=== PATIENT | male | born 1995 | race Caucasian/White ===

== ENCOUNTER 2016-05-25 20:03 | Emergency (ER) | payer BC, MEDICAID ==
--- NOTE | 2016-05-25 21:26 | EDDOCDS ---
Physician Documentation [facility] Name: Brandyn Romano Age: 20 yrs Sex: Male : 1995 Arrival Date: 05/25/2016 Time: 20:03 Bed TR7 Private MD: NO PRIMARY PHYSICIAN, . Disposition: 05/25/16 21:09 Discharged to Home/Self Care. Impression: Acute serous otitis media, right ear. - Condition is Stable. - Discharge Instructions: Serous Otitis Media. - Medication Reconciliation, Local Pharmacy Hours form. - Follow up: Private Physician; When: 2 - 3 days; Reason: Further diagnostic work-up, Recheck today's complaints, Continuance of care. - Problem is new. - Symptoms are unchanged. Historical: - Allergies: no known allergies; - Home Meds: 1. minocycline 55 mg Oral Tb24 1 tab once daily - PMHx: none; - PSHx: Tonsillectomy; Tubes in ears; - Social history: Smoking status: Patient states was never smoker of tobacco. No barriers to communication noted, The patient speaks fluent Congolese. - Family history: Not pertinent, No immediate family members are acutely ill. - : The pt / caregiver states he / she is not on anticoagulants. Home medication list is obtained from the patient. - Exposure Risk Screening:: None identified. Vital Signs: 05/25 20:05 BP 139 / 83; Pulse 76; Resp 18; Temp 96.6(O); Pulse Ox 100% on R/A; Weight 99.34 kg / elp 219.01 lbs (M); Height 5 ft. 8 in. (172.72 cm) (R); Pain 7/10; 20:05 Body Mass Index 33.30 (99.34 kg, 172.72 cm) elp Signatures: Doreen Woodruff RN RN kmg1 Hui DowRN RN rs3 Marlon Oropeza PA PA btw MTDD
--- NOTE | 2016-05-25 21:26 | EDDOCDS ---
Nurse's Notes [facility] Name: Brandyn Romano Age: 20 yrs Sex: Male : 1995 Arrival Date: 05/25/2016 Time: 20:03 Bed TR7 Private MD: NO PRIMARY PHYSICIAN, . Diagnosis: Acute serous otitis media, right ear Presentation: 05/25 20:15 Presenting complaint: Patient states: Right ear pain/nausea started an hour ago. Adult rs3 Sepsis Screening: The patient does not have new or worsening altered mentation. Patient's respiratory rate is less than 22. Systolic blood pressure is greater than 100. Patient has a qSOFA score of 0- Negative Sepsis Screen. Suicide/Homicide risk assessment- the patient denies having any suicidal and/or homicidal ideations and does not present with any other emotional, behavioral or mental health complaints. Status: Patient is not a x ray service technician or dependent. Transition of care: patient was not received from another setting of care. 20:15 Acuity: DANIS Level 5 rs3 20:15 Method Of Arrival: Walkin/Carried/Asstd rs3 Triage Assessment: 20:19 General: Appears in no apparent distress. Pain: Location: right ear. Pt Declines HIV rs3 testing. EENT: Reports pain Pain is 7 out of 10 on a pain scale. Historical: - Allergies: no known allergies; - Home Meds: 1. minocycline 55 mg Oral Tb24 1 tab once daily - PMHx: none; - PSHx: Tonsillectomy; Tubes in ears; - Social history: Smoking status: Patient states was never smoker of tobacco. No barriers to communication noted, The patient speaks fluent Tongan. - Family history: Not pertinent, No immediate family members are acutely ill. - : The pt / caregiver states he / she is not on anticoagulants. Home medication list is obtained from the patient. - Exposure Risk Screening:: None identified. Screenin:23 Screening information is obtained from the patient. Fall risk: No risks identified. kmg1 Assistance ADL's: requires no assistance with activities of daily living. Abuse/DV Screen: The patient / caregiver reports he/she is: not in a situation that causes fear, pain or injury. Nutritional screening: No deficits noted. Advance Directives: There is no active DNR order. home support is adequate. Assessment: 21:23 General: Appears in no apparent distress, comfortable, Behavior is appropriate for age, kmg1 cooperative, pleasant. Pain: Location: right ear Pain currently is 7 out of 10 on a pain scale. EENT: Tympanic membrane reddened on right ear Reports pain in right ear. Vital Signs: 20:05 BP 139 / 83; Pulse 76; Resp 18; Temp 96.6(O); Pulse Ox 100% on R/A; Weight 99.34 kg elp (M); Height 5 ft. 8 in. (172.72 cm) (R); Pain 7/10; 20:05 Body Mass Index 33.30 (99.34 kg, 172.72 cm) elp Vitals: 20:05 Log In Time: May 25, 2016 at 20:03. elp ED Course: 20:04 Patient visited by Minnie Segundo PCA. elp 20:04 Patient moved to Waiting elp 20:05 NO PRIMARY PHYSICIAN, . is Private Physician. elp 20:05 Patient visited by Minnie Segundo PCA. elp 20:05 Patient moved to Pre RCE elp 20:17 Triage Initiated rs3 20:45 Patient moved to Triage 1 ct3 20:55 [facility]. btw 20:55 Perry Sanchez DO is Attending Physician. btw 20:55 Patient visited by Marlon Oropeza PA. btw 21:23 The patient / caregiver is instructed regarding the plan of care and ED course. kmg1 21:23 No IV's were initiated during this patient's visit. No procedures done that require kmg1 assistance. 21:24 Patient moved to TR7 ct3 Order Results: There are currently no results for this order. Outcome: 21:09 Discharge ordered by Provider. btw 21:23 Discharge Assessment: Patient awake, alert and oriented x 3. No cognitive and/or kmg1 functional deficits noted. Patient verbalized understanding of disposition instructions. Patient awake and alert. patient administered narcotics - no. The following High Risk Discharge criteria are identified: None. Discharged to home ambulatory, with parent. Condition: stable. Discharge instructions given to patient, Instructed on discharge instructions, follow up and referral plans. medication usage, Demonstrated understanding of instructions, Pt was receptive of discharge instructions/ teaching. No special radiology studies were completed. Property sent home with patient. 21:25 Patient left the ED. kmg1 Signatures: Doreen Woodruff RN RN kmg1 Hui Dow RN RN rs3 Marlon Oropeza PA PA btw Tameka Davis, BINDERY CHIEF BINDERY CHIEF ct3 Minnie Segundo, BINDERY CHIEF BINDERY CHIEF elp MTDD
--- NOTE | 2016-05-27 22:27 | EDDOCDS ---
Physician Documentation [facility] Name: Brandyn Romano Age: 20 yrs Sex: Male : 1995 Arrival Date: 05/25/2016 Time: 20:03 Bed TR7 Private MD: NO PRIMARY PHYSICIAN, . Disposition: 05/25/16 21:09 Discharged to Home/Self Care. Impression: Acute serous otitis media, right ear. - Condition is Stable. - Discharge Instructions: Serous Otitis Media. - Medication Reconciliation, Local Pharmacy Hours form. - Follow up: Private Physician; When: 2 - 3 days; Reason: Further diagnostic work-up, Recheck today's complaints, Continuance of care. - Problem is new. - Symptoms are unchanged. Historical: - Allergies: no known allergies; - Home Meds: 1. minocycline 55 mg Oral Tb24 1 tab once daily - PMHx: none; - PSHx: Tonsillectomy; Tubes in ears; - Social history: Smoking status: Patient states was never smoker of tobacco. No barriers to communication noted, The patient speaks fluent Filipino. - Family history: Not pertinent, No immediate family members are acutely ill. - : The pt / caregiver states he / she is not on anticoagulants. Home medication list is obtained from the patient. - Exposure Risk Screening:: None identified. Vital Signs: 05/25 20:05 BP 139 / 83; Pulse 76; Resp 18; Temp 96.6(O); Pulse Ox 100% on R/A; Weight 99.34 kg / elp 219.01 lbs (M); Height 5 ft. 8 in. (172.72 cm) (R); Pain 7/10; 20:05 Body Mass Index 33.30 (99.34 kg, 172.72 cm) elp MDM: 21:39 Financial registration complete. [facility] 21:41 [facility] Payment Agreement was scanned into [employer] and attached to record. [email or web address] 05/26 21:38 T-Sheet-- Draft Copy was scanned into [employer] and attached to record. dexter Signatures: Doreen Woodruff RN RN kmg1 Hui Dow RN RN rs3 Marlon Oropeza PA PA btw Georgia Lo, Reg Reg ks16 Татьяна Kurtz The chart was reviewed and I authenticate all verbal orders and agree with the evaluation and treatment provided.Attachments: 05/25 21:41 [facility] Payment Agreement [email or web address] 05/26 21:38 T-Sheet-- Draft Copy klr Chart Complete MTDD
--- NOTE | 2016-05-27 22:27 | EDDOCDS ---
Physician Documentation [facility] Name: Brandyn Romano Age: 20 yrs Sex: Male : 1995 Arrival Date: 05/25/2016 Time: 20:03 Bed TR7 Private MD: NO PRIMARY PHYSICIAN, . Disposition: 05/25/16 21:09 Discharged to Home/Self Care. Impression: Acute serous otitis media, right ear. - Condition is Stable. - Discharge Instructions: Serous Otitis Media. - Medication Reconciliation, Local Pharmacy Hours form. - Follow up: Private Physician; When: 2 - 3 days; Reason: Further diagnostic work-up, Recheck today's complaints, Continuance of care. - Problem is new. - Symptoms are unchanged. Historical: - Allergies: no known allergies; - Home Meds: 1. minocycline 55 mg Oral Tb24 1 tab once daily - PMHx: none; - PSHx: Tonsillectomy; Tubes in ears; - Social history: Smoking status: Patient states was never smoker of tobacco. No barriers to communication noted, The patient speaks fluent Vietnamese. - Family history: Not pertinent, No immediate family members are acutely ill. - : The pt / caregiver states he / she is not on anticoagulants. Home medication list is obtained from the patient. - Exposure Risk Screening:: None identified. Vital Signs: 05/25 20:05 BP 139 / 83; Pulse 76; Resp 18; Temp 96.6(O); Pulse Ox 100% on R/A; Weight 99.34 kg / elp 219.01 lbs (M); Height 5 ft. 8 in. (172.72 cm) (R); Pain 7/10; 20:05 Body Mass Index 33.30 (99.34 kg, 172.72 cm) elp MDM: 21:39 Financial registration complete. [facility] 21:41 [facility] Payment Agreement was scanned into [employer] and attached to record. [email or web address] 05/26 21:38 T-Sheet-- Draft Copy was scanned into [employer] and attached to record. dexter Signatures: Doreen Woodruff RN RN kmg1 Hui Dow RN RN rs3 Marlon Oropeza PA PA btw Georgia Lo, Reg Reg ks16 Татьяна Kurtz The chart was reviewed and I authenticate all verbal orders and agree with the evaluation and treatment provided.Attachments: 05/25 21:41 [facility] Payment Agreement [email or web address] 05/26 21:38 T-Sheet-- Draft Copy klr Chart Complete MTDD
--- NOTE | 2016-05-27 22:27 | EDDOCDS ---
Nurse's Notes [facility] Name: Brandyn Romano Age: 20 yrs Sex: Male : 1995 Arrival Date: 05/25/2016 Time: 20:03 Bed TR7 Private MD: NO PRIMARY PHYSICIAN, . Diagnosis: Acute serous otitis media, right ear Presentation: 05/25 20:15 Presenting complaint: Patient states: Right ear pain/nausea started an hour ago. Adult rs3 Sepsis Screening: The patient does not have new or worsening altered mentation. Patient's respiratory rate is less than 22. Systolic blood pressure is greater than 100. Patient has a qSOFA score of 0- Negative Sepsis Screen. Suicide/Homicide risk assessment- the patient denies having any suicidal and/or homicidal ideations and does not present with any other emotional, behavioral or mental health complaints. Status: Patient is not a auto self service station attendant or dependent. Transition of care: patient was not received from another setting of care. 20:15 Acuity: DANIS Level 5 rs3 20:15 Method Of Arrival: Walkin/Carried/Asstd rs3 Triage Assessment: 20:19 General: Appears in no apparent distress. Pain: Location: right ear. Pt Declines HIV rs3 testing. EENT: Reports pain Pain is 7 out of 10 on a pain scale. Historical: - Allergies: no known allergies; - Home Meds: 1. minocycline 55 mg Oral Tb24 1 tab once daily - PMHx: none; - PSHx: Tonsillectomy; Tubes in ears; - Social history: Smoking status: Patient states was never smoker of tobacco. No barriers to communication noted, The patient speaks fluent [place] Islander. - Family history: Not pertinent, No immediate family members are acutely ill. - : The pt / caregiver states he / she is not on anticoagulants. Home medication list is obtained from the patient. - Exposure Risk Screening:: None identified. Screenin:23 Screening information is obtained from the patient. Fall risk: No risks identified. kmg1 Assistance ADL's: requires no assistance with activities of daily living. Abuse/DV Screen: The patient / caregiver reports he/she is: not in a situation that causes fear, pain or injury. Nutritional screening: No deficits noted. Advance Directives: There is no active DNR order. home support is adequate. Assessment: 21:23 General: Appears in no apparent distress, comfortable, Behavior is appropriate for age, kmg1 cooperative, pleasant. Pain: Location: right ear Pain currently is 7 out of 10 on a pain scale. EENT: Tympanic membrane reddened on right ear Reports pain in right ear. Vital Signs: 20:05 BP 139 / 83; Pulse 76; Resp 18; Temp 96.6(O); Pulse Ox 100% on R/A; Weight 99.34 kg elp (M); Height 5 ft. 8 in. (172.72 cm) (R); Pain 7/10; 20:05 Body Mass Index 33.30 (99.34 kg, 172.72 cm) elp Vitals: 20:05 Log In Time: May 25, 2016 at 20:03. elp ED Course: 20:04 Patient visited by Minnie Segundo PCA. elp 20:04 Patient moved to Waiting elp 20:05 NO PRIMARY PHYSICIAN, . is Private Physician. elp 20:05 Patient visited by Minnie Segundo PCA. elp 20:05 Patient moved to Pre RCE elp 20:17 Triage Initiated rs3 20:45 Patient moved to Triage 1 ct3 20:55 [facility] btw 20:55 Perry Sanchez DO is Attending Physician. btw 20:55 Patient visited by Marlon Oropeza PA. btw 21:23 The patient / caregiver is instructed regarding the plan of care and ED course. kmg1 21:23 No IV's were initiated during this patient's visit. No procedures done that require kmg1 assistance. 21:24 Patient moved to TR7 ct3 21:41 [facility] Payment Agreement was scanned into [employer] and attached to record. [email or web address] 05/26 21:38 T-Sheet-- Draft Copy was scanned into [employer] and attached to record. klr Order Results: There are currently no results for this order. Outcome: 05/25 21:09 Discharge ordered by Provider. btw 21:23 Discharge Assessment: Patient awake, alert and oriented x 3. No cognitive and/or kmg1 functional deficits noted. Patient verbalized understanding of disposition instructions. Patient awake and alert. patient administered narcotics - no. The following High Risk Discharge criteria are identified: None. Discharged to home ambulatory, with parent. Condition: stable. Discharge instructions given to patient, Instructed on discharge instructions, follow up and referral plans. medication usage, Demonstrated understanding of instructions, Pt was receptive of discharge instructions/ teaching. No special radiology studies were completed. Property sent home with patient. 21:25 Patient left the ED. kmg1 Signatures: Doreen Woodruff, RN RN kmg1 Hui Dow RN RN rs3 Marlon Oropeza PA PA btw Tameka Davis, BAKED GOODS STOCK CLERK BAKED GOODS STOCK CLERK ct3 Minnie Segundo, BAKED GOODS STOCK CLERK BAKED GOODS STOCK CLERK elp Georgia Lo, Reg Reg [email or web address] Татьяна Kurtz Chart Complete MTDD
== END 2016-05-25 21:25 | disposition home or self-care (01) ==
LOC: M ED 20:03
DX: H65.191 Other acute nonsuppurative otitis media, right ear (principal)

== ENCOUNTER 2017-02-02 21:11 | Emergency (ER) | payer MEDICAID, OTHER ==
[~2017-02-02] VITALS: Ht 175.3 cm; Wt 104.5 kg
[2017-02-02 21:11] VITALS: BP 137/85
== END 2017-02-03 00:47 | disposition left against medical advice (07) ==
LOC: M ED 21:11
DX: R10.9 Unspecified abdominal pain (principal); Z53.21 Procedure and treatment not carried out due to patient leaving prior to being seen by health care provider

== ENCOUNTER → 2017-02-04 | Outpatient (CLI) | payer OTHER ==
[2017-02-04 20:29] LABS: BASO # 0.1 10^3/uL (0.0-0.2); BASO % 0.9 % (0.0-1.0); EOS # 0.1 10^3/uL (0.0-0.50); EOS % 1.6 % (0.0-3.0); IMMATURE GRANULOCYTE % 0.3 % (0-0); LYMPH % 37.3 % (24.0-44.0); MEAN CORPUSCULAR HEMOGLOBIN 29.3 pg (27.0-33.0); MEAN CORPUSCULAR HGB CONC 33.5 g/dl (32.0-36.5); MEAN CORPUSCULAR VOLUME 87.3 fl (80.0-96.0); MONO # 1.1 10^3/uL (0.0-0.8); MONO % 14.1 % (0.0-5.0); NEUTROPHILS # 3.7 10^3/uL (1.8-7.7); NEUTROPHILS % 45.8 % (36.0-66.0); PLATELET COUNT, AUTOMATED 310 10^3/uL (150-450); RED CELL DISTRIBUTION WIDTH 13.1 % (11.5-14.5)
== END ==
LOC: M WUC 16:39
PROVIDERS: ATTEND Physician Assistant
DX: R10.32 Left lower quadrant pain (principal)

== ENCOUNTER → 2018-04-03 | Outpatient (REF) | payer OTHER, SELFPAY | LOC: M LAB REF 15:54 | PROVIDERS: ATTEND Physician Assistant | DX: R30.0 Dysuria (principal) ==

== ENCOUNTER → 2020-11-15 | Outpatient (CLI) | payer OTHER ==
[2020-11-15 19:26] LABS: BASO # 0.1 10^3/uL (0.0-0.2); EOS # 0.1 10^3/uL (0.0-0.5); EOS % 2.1 % (0.0-3.0); HEMATOCRIT 43.7 % (42.0-52.0); HEMOGLOBIN 14.2 g/dl (13.5-17.5); LYMPH % 29.5 % (24.0-44.0); MEAN CORPUSCULAR HEMOGLOBIN 29.6 pg (27.0-33.0); MEAN CORPUSCULAR HGB CONC 32.5 g/dl (32.0-36.5); MEAN CORPUSCULAR VOLUME 91.2 fl (80.0-96.0); MONO % 15.2 % (2.0-8.0); NEUTROPHILS # 3.5 10^3/uL (1.5-8.5); NEUTROPHILS % 52.1 % (36.0-66.0); PLATELET COUNT, AUTOMATED 317 10^3/uL (150-450); RED BLOOD COUNT 4.79 10^6/uL (4.30-6.10); WHITE BLOOD COUNT 6.8 10^3/uL (4.0-10.0)
[2020-11-15 19:55] LABS: ALBUMIN 4.4 GM/DL (3.2-5.2); ALT/SGPT 91 U/L (12-78); BILIRUBIN,TOTAL 0.3 MG/DL (0.2-1.0); BLOOD UREA NITROGEN 13 MG/DL (7-18); CALCIUM LEVEL 8.9 MG/DL (8.5-10.1); CARBON DIOXIDE LEVEL 33 MEQ/L (21-32); CHLORIDE LEVEL 105 MEQ/L (98-107); CREATININE FOR GFR 0.92 MG/DL (0.70-1.30); GLOMERULAR FILTRATION RATE > 60.0 (>60); GLUCOSE, FASTING 93 MG/DL (70-100); POTASSIUM SERUM 4.3 MEQ/L (3.5-5.1); SODIUM LEVEL 140 MEQ/L (136-145); TOTAL PROTEIN 7.7 GM/DL (6.4-8.2)
== END ==
LOC: M PLALAB 14:36
PROVIDERS: ATTEND Nurse Practitioner Family
DX: F41.1 Generalized anxiety disorder (principal)

== ENCOUNTER → 2021-01-31 | Outpatient (REF) | payer OTHER ==
[2021-01-31 21:47] LABS: APPEARANCE, URINE CLEAR (CLEAR); BACTERIA, URINE AUTO NEGATIVE (NEGATIVE); BILIRUBIN, URINE AUTO NEGATIVE (NEGATIVE); BLOOD, URINE BLOOD NEGATIVE (NEGATIVE); COLOR, URINE YELLOW (YELLOW); GLUCOSE, URINE (UA) AUTO NEGATIVE (NEGATIVE); KETONE, URINE AUTO NEGATIVE (NEGATIVE); LEUKOCYTE ESTERASE, URINE AUTO NEGATIVE (NEGATIVE); MUCUS, URINE SMALL (NEGATIVE); NITRITE, URINE AUTO NEGATIVE (NEGATIVE); PROTEIN, URINE AUTO NEGATIVE (NEGATIVE); RBC, URINE AUTO 0 /HPF (0-3); SPECIFIC GRAVITY URINE AUTO 1.026 (1.002-1.035); SQUAMOUS EPITHELIAL CELL UR AU 0 /HPF (0-6); UROBILINOGEN, URINE AUTO 0.2 mg/dL (0.0-2.0); WBC, URINE AUTO 3 /HPF (0-3)
== END ==
LOC: M LAB REF 21:36
PROVIDERS: ATTEND Physician Assistant
DX: R30.0 Dysuria (principal)

== ENCOUNTER 2021-03-11 02:33 | Emergency (ER) | payer OTHER ==
[~2021-03-11] VITALS: Ht 177.8 cm; Wt 115.6 kg
--- OUTSIDE RECORDS SUMMARY | 2021-03-11 02:40 | CCD ---
Author Author [facility] Organization [facility] Address Unknown Phone Unavailable Support Name Relationship Address Phone MCDONALDS Next Of Kin [address] [place] [address] M[place]ONSTATE Next Of Kin [address] [place] [id number] RAYNA WU Next Of Kin [address] [place] [address] UE Next Of Kin Unknown Unavailable CHILD Next Of Kin Unknown Unavailable АНДРЕЙ ROMANOA Next Of Kin [address] [place] [address] LETY ROMANO Next Of Kin [address] [address] [facility] [address] [place] [address] Laura Romano [place], [place] Unavailable Re-disclosure Warning The records that you are about to access may contain information from federally-assisted alcohol or drug abuse programs. If such information is present, then the following federally mandated warning applies: This information has been disclosed to you from records protected by federal confidentiality rules (42 CFR part 2). The federal rules prohibit you from making any further disclosure of this information unless further disclosure is expressly permitted by the written consent of the person to whom it pertains or as otherwise permitted by 42 CFR part 2. A general authorization for the release of medical or other information is NOT sufficient for this purpose. The Federal rules restrict any use of the information to criminally investigate or prosecute any alcohol or drug abuse patient.The records that you are about to access may contain highly sensitive health information, the redisclosure of which is protected by Article 27-F of the [facility] Public Health law. If you continue you may have access to information: Regarding HIV / AIDS; Provided by facilities licensed or operated by the [facility] Office of Mental Health; or Provided by the [facility] Office for People With Developmental Disabilities. If such information is present, then the following [facility] mandated warning applies: This information has been disclosed to you from confidential records which are protected by state law. State law prohibits you from making any further disclosure of this information without the specific written consent of the person to whom it pertains, or as otherwise permitted by law. Any unauthorized further disclosure in violation of state law may result in a fine or long term sentence or both. A general authorization for the release of medical or other information is NOT sufficient authorization for further disc losure. Family History Family Member Name Family Member Gender Family Member Status Date o f Status Description Data Source(s) Unknown Unknown Problem MEDENT ([facility], [facility]) mgm Encounters Encounter Providers Location Date Indications Data Source(s ) [place] [address] [facility] [place] [address] 12/01/2020 12:00:00 AM EDT eCW1 ([facility]) Outpatient [address] [facility] [place] [address] 11/15/2020 12:00:00 AM EDT eCW1 ([facility]) Immunizations Vaccine Date Status Description Data Source(s) COVID-19 VACCINE Pfizer 12/19/2020 12:00:00 AM EDT completed [facility] Vaccine Series Complete: YESThis Data wa s Submitted to [facility] Via [employer]. COVID-19 VACC, MRNA(PFIZER)/PF 11/28/2020 12:00:00 AM EDT completed [facility] COVID-19 VACCINE Pfizer 11/28/2020 12:00:00 AM EDT completed [facility] Vaccine Series Complete: NOThis Data was Submitted to [facility] Via [employer]. INFLUENZA VIRUS VACCINE QUADRIVAL [id number](6 MOS AND UP)/PF 02/03/2020 12:00:00 AM EDT completed [facility] Medications Medication Brand Name Start Date Product Form Dose Route Admi nistrative Instructions Pharmacy Instructions Status Indications Reaction Description Data Source(s) 500 mg 02/03/2021 12:00:00 AM EDT tablet 10 TAKE ONE TABLET BY MOUTH EVERY 12 HOURS FOR 5 DAYS TAKE ONE TABLET BY MOUTH EVERY 12 HOURS FOR 5 DAYS CORIE [facility] 150 mg 02/02/2021 12:00:00 AM EDT tablet 2 TAKE 1 TABLET BY MOUTH TODAY THEN TAKE 2ND TABLET IN 48 HOURS TAKE 1 TABLET BY MOUTH TODAY THEN TAKE 2 ND TABLET IN 48 HOURS SOLD: 02/02/2021 [facility] 20 mg 11/16/2020 12:00:00 AM EDT capsule 30 TAKE ONE CAPSULE BY MOUTH EVERY DAY TAKE ONE CAPSULE BY MOUTH EVERY DAY SOLD: 11/17/2020 [facility] Fluoxetine 20 MG Oral Capsule FLUoxetine HCl 20 MG FLUoxetin e HCl 20 MG 11/15/2020 12:00:00 AM EDT 1.0 {capsule} active FLUoxetine HCl 20 MG eCW1 ([facility]) Insurance Providers Payer name Policy type / Coverage type Policy ID Covered libertarian ID Covered libertarian's relationship to ortez Policy Ortez Plan Information [place] PPO 302/307 [id number] [id number] [facility] BLUE [id number] SP [id number] [facility] [id number] SP [id number] O BLUE [id number] MO [id number] MEDICAID [id number] SP [id number] [facility] [id number] SP [id number] EXCELLUS I [id number] Self [id number] [facility] Health Maintenance Organization ([facility]) [id number] Self [id number] JENNIFER [id number] SP [id number] EXCELLUS BCBS P [id number] S [id number] [facility]UE [employer] [facility]UE [facility] [id number] 18 [id number] [employer]UE [employer] BLUE [facility] [id number] 18 [id number] [facility] [id number] SP [id number] [facility] [id number] SP [id number] SELF PAY ONLY SP O BLUE [id number] MO [id number] [facility] [id number] SP [id number] [facility] [id number] SP [id number] [facility] [id number] 18 [id number] Problems, Conditions, and Diagnoses Code Display Name Description Problem Type Effective Dates Data Source(s) F41.1 [id number] BRANDEN (generalized anxiety disorder) Proble m 11/15/2020 12:00:00 AM EDT eCW1 ([facility]) Surgeries/Procedures No Information Results No Information Social History Code Duration Value Status Description Data Source(s ) Smoking 12/01/2020 12:00:00 AM EDT Never Smoker completed Never S moker eCW1 ([facility]) Smoking 11/15/2020 12:00:00 AM EDT Never Smoker completed Never S moker eCW1 ([facility]) Vital Signs ID Date Data Source UNK Name Value Range Interpretation Code Description Data Source(s) Body weight 250 [lb_av] 250 [lb_av] eCW1 ([facility]) Body weight 113.4 kg 113.4 kg eCW1 ([facility]) Body height 69.5 [in_i] 69.5 [in_i] eCW1 ([facility]) Body mass index (BMI) [Ratio] 36.39 kg/m2 36.39 kg/m2 eCW1 ([facility]) Heart rate 102 /min 102 /min eCW1 ([facility]) Respiratory rate 18 /min 18 /min eCW1 ([facility]) Body temperature 97.7 [degF] 97.7 [degF] eCW1 ( [facility]) Systolic blood pressure 118 mm[Hg] 118 mm[Hg] e CW1 ([facility]) Diastolic blood pressure 74 mm[Hg] 74 mm[Hg] eCW1 ([facility]) Body weight 253 [lb_av] 253 [lb_av] eCW1 ([facility]) Body height 69.5 [in_i] 69.5 [in_i] eCW1 ([facility]) Body mass index (BMI) [Ratio] 36.82 kg/m2 36.82 kg/m2 eCW1 ([facility]) Heart rate 102 /min 102 /min eCW1 ([facility]) Respiratory rate 18 /min 18 /min eCW1 ([facility]) Body temperature 97.7 [degF] 97.7 [degF] eCW1 ( [facility]) Systolic blood pressure 116 mm[Hg] 116 mm[Hg] e CW1 ([facility]) Diastolic blood pressure 74 mm[Hg] 74 mm[Hg] eCW1 ([facility]) Patient Treatment Plan of Care Planned Activity Planned Date Details Description Data Source (s) Fluoxetine 20 MG Oral Capsule 11/15/2020 12:00:00 AM EDT eCW1 ([facility])
[2021-03-11] MEDS ORDERED: FLUO20CA22 PO (02:41)
[2021-03-11] MEDS ORDERED: KETOROLAC 30 MG/ML 1ML VIAL IV ONE (03:35)
--- OUTSIDE RECORDS SUMMARY | 2021-03-11 03:41 | CCD ---
Author Author [facility] Organization [facility] Address Unknown Phone Unavailable Support Name Relationship Address Phone [place] Next Of Kin [address] [place] [address] [place] Next Of Kin [address] [place] [id number] RAYNA WU Next Of Kin [address] [place] [address] UE Next Of Kin Unknown Unavailable CHILD Next Of Kin Unknown Unavailable АНДРЕЙ ROMANOA Next Of Kin [address] [place] [address] LETY ROMANO Next Of Kin [address] [facility] [address] [place] [address] Laura Romano [place], [place] Unavailable Re-disclosure Warning The records that [...] is protected by Article 27-F of the [facility] Public Health law. If you continue you may have access to information: Regarding HIV / AIDS; Provided by facilities licensed or operated by the [facility] Office of Mental Health; or Provided by the [facility] Office for People With Developmental Disabilities. If such information is present, then the following [facility] mandated warning applies: This information has been [...] law may result in a fine or correction sentence or both. A general authorization for the release of medical or other information is NOT sufficient authorization for further disc losure. Family History Family Member Name Family Member Gender Family Member Status Date o f Status Description Data Source(s) Unknown Unknown Problem [facility] ([facility], [facility]) mgm Encounters Encounter Providers Location Date Indications Data Source(s ) [place] [address] [facility] [place] [address] 12/01/2020 12:00:00 AM EDT eCW1 ([facility]) [place] [address] [facility] [address] 11/15/2020 12:00:00 AM EDT eCW1 ([facility]) Immunizations Vaccine Date Status Description Data Source(s) COVID-19 VACCINE Pfizer 12/19/2020 12:00:00 AM EDT completed [facility] Vaccine Series Complete: YESThis Data wa s Submitted to [facility] Via [employer]. COVID-19 VACC, MRNA(PFIZER)/PF 11/28/2020 12:00:00 AM EDT completed [facility] COVID-19 VACCINE Pfizer 11/28/2020 12:00:00 AM EDT completed [facility] Vaccine Series Complete: NOThis Data was Submitted to [facility] Via [employer]. INFLUENZA VIRUS VACCINE QUADRIVAL [id number](6 MOS AND UP)/PF 02/03/2020 12:00:00 AM EDT [...] {capsule} active FLUoxetine HCl 20 MG eCW1 ([facility]) Insurance Providers Payer name Policy type / Coverage type Policy ID Covered republican ID Covered republican's relationship to ortez Policy Ortez Plan Information [place] PPO 302/307 [id number] MO2 [id number] [facility] [place]UE [id number] SP [id number] [facility] PLAN [facility] [id number] SP [id number] O BLUE [id number] [place] [id number] MEDICAID [id number] SP [id number] [facility] PLAN [facility] [id number] SP [id number] EXCELLUS I [id number] Self [id number] [facility] [id number] Self [id number] JENNIFER [id number] SP [id number] [employer] BCBS P [id number] S [id number] [facility] [id number] [employer] [facility] [id number] [facility] PLAN [facility] [id number] SP [id number] [facility] [id number] SP [id number] SELF PAY ONLY SP O BLUE [id number] [place] [id number] [facility] PLAN [facility] [id number] SP [id number] [facility] [id number] SP [id number] [facility] [id number] 18 [id number] Problems, Conditions, and Diagnoses Code Display Name Description Problem Type Effective Dates Data Source(s) F41.1 [id number] BRANDEN (generalized anxiety disorder) Proble m 11/15/2020 12:00:00 AM EDT eCW1 ([facility]) Surgeries/Procedures No Information Results No Information Social History Code Duration Value Status Description Data Source(s ) Smoking 12/01/2020 12:00:00 AM EDT Never Smoker completed Never S moker eCW1 ([facility]) Smoking 11/15/2020 12:00:00 AM EDT Never Smoker completed Never S moker eCW1 ([facility]) Vital Signs ID Date Data Source UNK Name Value Range Interpretation Code Description Data Source(s) Body weight 250 [lb_av] 250 [lb_av] eCW1 ([facility]) Body weight 113.4 kg 113.4 kg eCW1 (formerly [facility]) Body height 69.5 [in_i] 69.5 [in_i] eCW1 ([facility]) Body mass index (BMI) [Ratio] 36.39 kg/m2 36.39 kg/m2 eCW1 ([facility]) Heart rate 102 /min 102 /min eCW1 ([facility]) Respiratory rate 18 /min 18 /min eCW1 (formerly [facility]) Body temperature 97.7 [degF] 97.7 [degF] eCW1 ( [facility]) Systolic blood pressure 118 mm[Hg] 118 mm[Hg] e CW1 ([facility]) Diastolic blood pressure 74 mm[Hg] 74 mm[Hg] eCW1 ([facility]) Body weight 253 [lb_av] 253 [lb_av] eCW1 ([facility]) Body height 69.5 [in_i] 69.5 [in_i] eCW1 ([facility]) Body mass index (BMI) [Ratio] 36.82 kg/m2 36.82 kg/m2 eCW1 ([facility]) Heart rate 102 /min 102 /min eCW1 ([facility]) Respiratory rate 18 /min 18 /min eCW1 (formerly [facility]) Body temperature 97.7 [degF] 97.7 [degF] eCW1 ( [facility]) Systolic blood pressure 116 mm[Hg] 116 mm[Hg] e CW1 ([facility]) Diastolic blood pressure 74 mm[Hg] 74 mm[Hg] eCW1 ([facility]) Patient Treatment Plan of Care Planned Activity Planned Date Details Description Data Source (s) Fluoxetine 20 MG Oral Capsule 11/15/2020 12:00:00 AM EDT eCW1 ([facility])
--- NOTE | 2021-03-11 04:23 | REPVR ---
PROCEDURE INFORMATION: Exam: XR Chest Exam date and time: 03/11/2021 3:45 AM Age: 25 years old Clinical indication: Other: Chest pain for a week TECHNIQUE: Imaging protocol: XR of the chest. Views: 1 view. COMPARISON: CR Chest, 2 view PA, Lat 05/16/2014 4:50 PM FINDINGS: Lungs: Unremarkable. No consolidation. Pleural spaces: Unremarkable. No pleural effusion. No pneumothorax. Heart/Mediastinum: Unremarkable. No cardiomegaly. Bones/joints: Unremarkable. IMPRESSION: Negative chest without change from 05/16/2014. Electronically signed by: Shantanu Lujan On 03/11/2021 04:22:44 AM
[2021-03-11 04:26] LABS: BASO # 0.1 10^3/uL (0.0-0.2); EOS # 0.2 10^3/uL (0.0-0.5); EOS % 2.5 % (0.0-3.0); HEMATOCRIT 41.1 % (42.0-52.0); HEMOGLOBIN 13.6 g/dl (13.5-17.5); LYMPH # 1.9 10^3/uL (1.5-5.0); LYMPH % 28.5 % (24.0-44.0); MEAN CORPUSCULAR HEMOGLOBIN 29.4 pg (27.0-33.0); MEAN CORPUSCULAR HGB CONC 33.1 g/dl (32.0-36.5); MONO # 0.8 10^3/uL (0.0-0.8); MONO % 12.5 % (2.0-8.0); NEUTROPHILS # 3.7 10^3/uL (1.5-8.5); NEUTROPHILS % 55.4 % (36.0-66.0); PLATELET COUNT, AUTOMATED 283 10^3/uL (150-450); RED BLOOD COUNT 4.62 10^6/uL (4.30-6.10); WHITE BLOOD COUNT 6.7 10^3/uL (4.0-10.0)
[2021-03-11 04:54] LABS: BLOOD UREA NITROGEN 13 MG/DL (7-18); CALCIUM LEVEL 8.8 MG/DL (8.5-10.1); CARBON DIOXIDE LEVEL 26 MEQ/L (21-32); CHLORIDE LEVEL 109 MEQ/L (98-107); CK-MB VALUE MASS 1.9 NG/ML (<3.6); CPK CREATINE PHOSPHOKINASE 159 U/L (39-308); CREATININE FOR GFR 0.81 MG/DL (0.70-1.30); GLOMERULAR FILTRATION RATE > 60.0 (>60); GLUCOSE, FASTING 99 MG/DL (70-100); MB/CK RELATIVE INDEX 1.19 (< OR =4); SODIUM LEVEL 141 MEQ/L (136-145); TROPONIN I < 0.02 NG/ML (< 0.10)
[2021-03-11 06:22] VITALS: BP 118/70
--- NOTE | 2021-03-11 20:06 | ECGEPIP ---
[facility] - ED Test Date: 2021-03-11 Pat Name: CRISTINA JACKSON Department: Room: - Gender: Male [employer]: : 1995 Requested By: VIVI Sommer Order Number: [id number] Reading MD: Harshil Peterson Measurements Intervals [place] Rate: 75 P: 32 IN: 148 QRS: 10 QRSD: 94 T: 6 QT: 396 QTc: 442 Interpretive Statements Normal sinus rhythm Similar to tracing done 05-16-14 but with increased rate Electronically Signed on 03-11-2021 20:06:24 EST by Harshil Peterson
== END 2021-03-11 06:22 | disposition home or self-care (01) ==
LOC: M ED 02:33
DX: R07.89 Other chest pain (principal); F17.290 Nicotine dependence, other tobacco product, uncomplicated

== ENCOUNTER → 2022-04-09 | Outpatient (CLI) | payer OTHER ==
[~2022-04-09] MED LIST: FLUO20CA22 PO
[2022-04-09 17:51] LABS: BASO # 0.1 10^3/uL (0.0-0.2); BASO % 0.8 % (0.0-1.0); EOS # 0.1 10^3/uL (0.0-0.5); HEMATOCRIT 44.7 % (42.0-52.0); LYMPH % 24.8 % (24.0-44.0); MEAN CORPUSCULAR HEMOGLOBIN 28.8 pg (27.0-33.0); MEAN CORPUSCULAR HGB CONC 31.3 g/dl (32.0-36.5); MONO # 0.9 10^3/uL (0.0-0.8); MONO % 11.1 % (2.0-8.0); NEUTROPHILS # 4.9 10^3/uL (1.5-8.5); NEUTROPHILS % 62.2 % (36.0-66.0); PLATELET COUNT, AUTOMATED 324 10^3/uL (150-450); RED BLOOD COUNT 4.86 10^6/uL (4.30-6.10); WHITE BLOOD COUNT 7.9 10^3/uL (4.0-10.0)
[2022-04-09 18:22] LABS: ALBUMIN 4.3 G/DL (3.2-5.2); ALKALINE PHOSPHATASE 63 U/L (46-116); ALT/SGPT 54 U/L (7.0-40); AST/SGOT 26 U/L (<34); BILIRUBIN,TOTAL 0.4 MG/DL (0.3-1.2); BLOOD UREA NITROGEN 9 MG/DL (9-23); CALCIUM LEVEL 9.7 MG/DL (8.5-10.1); CARBON DIOXIDE LEVEL 29 MMOL/L (20-31); CHLORIDE LEVEL 104 MMOL/L (98-107); CREATININE FOR GFR 0.82 MG/DL (0.70-1.30); GLOMERULAR FILTRATION RATE > 60.0 (>60); GLUCOSE, FASTING 93 MG/DL (60-100); POTASSIUM SERUM 4.1 MMOL/L (3.5-5.1); SODIUM LEVEL 140 MMOL/L (136-145); TOTAL PROTEIN 7.4 G/DL (5.7-8.2)
== END ==
LOC: M PLALAB 15:01
PROVIDERS: ATTEND Nurse Practitioner Family
DX: R10.9 Unspecified abdominal pain (principal)

== ENCOUNTER 2022-04-11 15:21 | Emergency (ER) | payer OTHER ==
[~2022-04-11] VITALS: Ht 177.8 cm; Wt 112.0 kg
[2022-04-11] MEDS ORDERED: NAPR-885 (15:30)
[2022-04-11] MEDS ORDERED: KETOROLAC 30 MG/ML 1ML VIAL IV ONE (16:05)
[2022-04-11 16:27] LABS: BASO # 0.1 10^3/uL (0.0-0.2); BASO % 0.6 % (0.0-1.0); EOS # 0.1 10^3/uL (0.0-0.5); EOS % 0.6 % (0.0-3.0); HEMATOCRIT 43.5 % (42.0-52.0); HEMOGLOBIN 14.3 g/dl (13.5-17.5); LYMPH # 2.3 10^3/uL (1.5-5.0); LYMPH % 27.3 % (24.0-44.0); MEAN CORPUSCULAR HEMOGLOBIN 29.6 pg (27.0-33.0); MEAN CORPUSCULAR HGB CONC 32.9 g/dl (32.0-36.5); MEAN CORPUSCULAR VOLUME 90.1 fl (80.0-96.0); MONO % 11.3 % (2.0-8.0); NEUTROPHILS # 5.1 10^3/uL (1.5-8.5); NEUTROPHILS % 60.1 % (36.0-66.0); PLATELET COUNT, AUTOMATED 307 10^3/uL (150-450); RED BLOOD COUNT 4.83 10^6/uL (4.30-6.10); WHITE BLOOD COUNT 8.4 10^3/uL (4.0-10.0)
[2022-04-11 17:09] LABS: LIPASE 31 U/L (12-53)
[2022-04-11 17:11] LABS: ALBUMIN 4.3 G/DL (3.2-5.2); ALKALINE PHOSPHATASE 63 U/L (46-116); ALT/SGPT 44 U/L (7.0-40); AST/SGOT 25 U/L (<34); BILIRUBIN,TOTAL 0.3 MG/DL (0.3-1.2); BLOOD UREA NITROGEN 14 MG/DL (9-23); CALCIUM LEVEL 9.4 MG/DL (8.5-10.1); CARBON DIOXIDE LEVEL 26 MMOL/L (20-31); CHLORIDE LEVEL 104 MMOL/L (98-107); CREATININE FOR GFR 0.89 MG/DL (0.70-1.30); GLOMERULAR FILTRATION RATE > 60.0 (>60); GLUCOSE, FASTING 80 MG/DL (60-100); POTASSIUM SERUM 3.9 MMOL/L (3.5-5.1); SODIUM LEVEL 143 MMOL/L (136-145); TOTAL PROTEIN 7.8 G/DL (5.7-8.2)
[2022-04-11 18:40] VITALS: BP 135/90
== END 2022-04-11 18:42 | disposition home or self-care (01) ==
LOC: M ED 15:21
DX: R10.9 Unspecified abdominal pain (principal)
CPT/HCPCS: 74176; 80053; 81002; 83690; 85025; 96374; 99283; J1885

== ENCOUNTER 2022-04-24 13:01 | Emergency (ER) | payer OTHER ==
[~2022-04-24] VITALS: Ht 177.8 cm; Wt 109.1 kg
[~2022-04-24 13:01] MED LIST changes: +NAPR-885
[2022-04-24] MEDS ORDERED: BUSP5TA (13:09)
[2022-04-24] MEDS ORDERED: OMEP40CA5 (13:09)
[2022-04-24] MEDS ORDERED: KETOROLAC 30 MG/ML 1ML VIAL IV ONE (16:50)
[2022-04-24] MEDS ORDERED: NS 1,000 ML IV ONE (16:50)
[2022-04-24 17:50] LABS: BASO % 0.5 % (0.0-1.0); EOS # 0.1 10^3/uL (0.0-0.5); EOS % 0.9 % (0.0-3.0); HEMATOCRIT 42.9 % (42.0-52.0); HEMOGLOBIN 14.2 g/dl (13.5-17.5); LYMPH # 1.6 10^3/uL (1.5-5.0); MEAN CORPUSCULAR HEMOGLOBIN 29.6 pg (27.0-33.0); MEAN CORPUSCULAR HGB CONC 33.1 g/dl (32.0-36.5); MEAN CORPUSCULAR VOLUME 89.6 fl (80.0-96.0); MONO # 0.8 10^3/uL (0.0-0.8); MONO % 10.6 % (2.0-8.0); NEUTROPHILS # 5.2 10^3/uL (1.5-8.5); NEUTROPHILS % 66.9 % (36.0-66.0); PLATELET COUNT, AUTOMATED 286 10^3/uL (150-450); RED BLOOD COUNT 4.79 10^6/uL (4.30-6.10); WHITE BLOOD COUNT 7.8 10^3/uL (4.0-10.0)
[2022-04-24 18:10] LABS: LIPASE 28 U/L (12-53)
[2022-04-24 18:12] LABS: ALBUMIN 4.1 G/DL (3.2-5.2); ALKALINE PHOSPHATASE 59 U/L (46-116); ALT/SGPT 59 U/L (7.0-40); AST/SGOT 28 U/L (<34); BILIRUBIN,DIRECT 0.2 MG/DL (<0.4); BILIRUBIN,TOTAL 0.4 MG/DL (0.3-1.2); BLOOD UREA NITROGEN 11 MG/DL (9-23); CALCIUM LEVEL 9.3 MG/DL (8.5-10.1); CARBON DIOXIDE LEVEL 26 MMOL/L (20-31); CHLORIDE LEVEL 105 MMOL/L (98-107); CREATININE FOR GFR 0.77 MG/DL (0.70-1.30); GLOMERULAR FILTRATION RATE > 60.0 (>60); GLUCOSE, FASTING 82 MG/DL (60-100); SODIUM LEVEL 140 MMOL/L (136-145); TOTAL PROTEIN 7.2 G/DL (5.7-8.2)
[2022-04-24 19:15] LABS: GC DNA AMPLIFICATION NEGATIVE (NEGATIVE)
[2022-04-24] MEDS ORDERED: CYCL-707 PO (21:03)
[2022-04-24] MEDS ORDERED: NAPR-837 PO (21:03)
[2022-04-24] MEDS ORDERED: LIDO5DIS41 TD (21:03)
[2022-04-24] MEDS ORDERED: LIDOCAINE 5% (LIDODERM) PATCH TD ONE (21:05)
[2022-04-24 21:39] VITALS: BP 131/87
== END 2022-04-24 21:44 | disposition home or self-care (01) ==
LOC: M ED 13:01
DX: M48.062 Spinal stenosis, lumbar region with neurogenic claudication (principal); N50.811 Right testicular pain; R10.11 Right upper quadrant pain; K21.9 Gastro-esophageal reflux disease without esophagitis; F41.9 Anxiety disorder, unspecified; Z79.899 Other long term (current) drug therapy
CPT/HCPCS: 74177; 76870; 80048; 80076; 81002; 83690; 85025; 87810; 87850; 93976; 96361; 96374; 99284; J1885

== ENCOUNTER → 2022-05-22 | Outpatient (CLI) | payer OTHER ==
[~2022-05-22] MED LIST changes: +BUSP5TA; +CYCL-707 PO; +LIDO5DIS41 TD; +NAPR-837 PO; +OMEP40CA5
== END ==
LOC: M SOG 08:06
PROVIDERS: ATTEND Orthopaedic Surgery
DX: M54.50 Low back pain, unspecified (principal)

== ENCOUNTER → 2022-05-28 | Outpatient (REF) | payer OTHER ==
[2022-05-28 19:29] LABS: APPEARANCE, URINE MANUAL TURBID (CLEAR); COLOR, URINE MANUAL YELLOW (YELLOW)
[2022-05-28 19:30] LABS: BILIRUBIN, URINE MANUAL NEGATIVE (NEGATIVE); BLOOD URINE MANUAL NEGATIVE (NEGATIVE); GLUCOSE, URINE (UA) MANUAL NEGATIVE (NEGATIVE); KETONE, URINE MANUAL NEGATIVE (NEGATIVE); LEUKOCYTE ESTERASE, URINE MAN NEGATIVE (NEGATIVE); NITRITE, URINE MANUAL NEGATIVE (NEGATIVE); PROTEIN, URINE MANUAL NEGATIVE (NEGATIVE); UROBILINOGEN, URINE MANUAL NORMAL (NORMAL)
[2022-05-28 20:06] LABS: AMORPHOUS SEDIMENT, URINE LARGE AMOUNT (NEGATIVE); BACTERIA, URINE NONE SEEN; HYALINE CAST, URINE NONE SEEN /lpf (0-1); RBC, URINE NONE SEEN /hpf (0-3); SQUAMOUS EPITHELIAL CELL URINE NONE SEEN /hpf (SMALL AMT); WBC, URINE NONE SEEN /hpf (0-3)
== END ==
LOC: M SMT 16:36
PROVIDERS: ATTEND Physician Assistant
DX: N50.811 Right testicular pain (principal)

== ENCOUNTER → 2022-06-12 | Outpatient (CLI) | payer OTHER | LOC: M RAD 15:33 | PROVIDERS: ATTEND Physician Assistant | DX: N50.811 Right testicular pain (principal) ==

== ENCOUNTER → 2022-06-15 | Outpatient (CLI) | payer OTHER | LOC: M RAD 14:50 | PROVIDERS: ATTEND Orthopaedic Surgery | DX: M54.50 Low back pain, unspecified (principal); M47.817 Spondylosis without myelopathy or radiculopathy, lumbosacral region ==

== ENCOUNTER 2022-09-15 18:31 | Emergency (ER) | payer OTHER ==
[~2022-09-15] VITALS: Ht 177.8 cm; Wt 110.2 kg
[2022-09-15 18:32] VITALS: BP 156/82
[2022-09-15] MEDS ORDERED: PANT40TA29 PO (18:57)
[2022-09-15] MEDS ORDERED: ONDANSETRON 4MG 2ML VIAL IV ONE (20:20)
[2022-09-15] MEDS ORDERED: NS 1,000 ML IV ONE (20:20)
[2022-09-15] MEDS ORDERED: KETOROLAC 30 MG/ML 1ML VIAL IV ONE (20:20)
[2022-09-15] MEDS ORDERED: PANTOPRAZOLE 40MG VIAL IV ONE (20:20)
[2022-09-15 20:43] LABS: BASO # 0.1 10^3/uL (0.0-0.2); BASO % 0.7 % (0.0-1.0); EOS # 0.1 10^3/uL (0.0-0.5); EOS % 1.4 % (0.0-3.0); HEMATOCRIT 40.9 % (42.0-52.0); LYMPH # 2.9 10^3/uL (1.5-5.0); LYMPH % 32.9 % (24.0-44.0); MEAN CORPUSCULAR HEMOGLOBIN 29.9 pg (27.0-33.0); MEAN CORPUSCULAR HGB CONC 34.2 g/dl (32.0-36.5); MEAN CORPUSCULAR VOLUME 87.2 fl (80.0-96.0); MONO # 1.1 10^3/uL (0.0-0.8); NEUTROPHILS # 4.7 10^3/uL (1.5-8.5); NEUTROPHILS % 52.8 % (36.0-66.0); PLATELET COUNT, AUTOMATED 345 10^3/uL (150-450); RED BLOOD COUNT 4.69 10^6/uL (4.30-6.10); WHITE BLOOD COUNT 8.8 10^3/uL (4.0-10.0)
[2022-09-15 21:11] LABS: CK-MB VALUE MASS 1.2 NG/ML (<3.6); LIPASE 34 U/L (12-53)
[2022-09-15 21:13] LABS: ALKALINE PHOSPHATASE 59 U/L (46-116); ALT/SGPT 117 U/L (7.0-40); AST/SGOT 32 U/L (<34); BILIRUBIN,DIRECT < 0.1 MG/DL (<0.4); BILIRUBIN,TOTAL 0.2 MG/DL (0.3-1.2); TOTAL PROTEIN 7.1 G/DL (5.7-8.2)
[2022-09-15 21:21] LABS: CPK CREATINE PHOSPHOKINASE 175 U/L (46-171); MB/CK RELATIVE INDEX 0.68 (< OR =4)
== END 2022-09-15 22:33 | disposition home or self-care (01) ==
LOC: M ED 18:31
DX: R10.11 Right upper quadrant pain (principal); R93.2 Abnormal findings on diagnostic imaging of liver and biliary tract; K76.0 Fatty (change of) liver, not elsewhere classified; K21.9 Gastro-esophageal reflux disease without esophagitis; F41.9 Anxiety disorder, unspecified; Z79.899 Other long term (current) drug therapy
CPT/HCPCS: 71046; 76705; 80047; 80076; 82550; 82553; 83690; 85025; 93005; 96361; 96374; 96375; 99284; C9113; J1885; J2405

== ENCOUNTER → 2022-10-22 | Outpatient (CLI) | payer OTHER ==
[~2022-10-22] MED LIST changes: +PANT40TA29 PO
== END ==
LOC: M PLALAB 10:31
PROVIDERS: ATTEND Physician Assistant Medical
DX: K58.2 Mixed irritable bowel syndrome (principal)

== ENCOUNTER → 2022-12-03 | Outpatient (CLI) | payer OTHER ==
[~2022-12-03] MED LIST changes: +LEXA1TAB PO
[2022-12-03 14:11] LABS: ALBUMIN 4.1 G/DL (3.2-5.2); ALKALINE PHOSPHATASE 53 U/L (46-116); ALT/SGPT 42 U/L (7.0-40); AST/SGOT 20 U/L (<34); BILIRUBIN,TOTAL 0.5 MG/DL (0.3-1.2); BLOOD UREA NITROGEN 11 MG/DL (9-23); CALCIUM LEVEL 9.2 MG/DL (8.5-10.1); CARBON DIOXIDE LEVEL 30 MMOL/L (20-31); CHLORIDE LEVEL 106 MMOL/L (98-107); CHOLESTEROL LEVEL 146 MG/DL (<200); CHOLESTEROL RISK RATIO 2.96 (<5); CREATININE FOR GFR 0.77 MG/DL (0.70-1.30); GLOMERULAR FILTRATION RATE > 60.0 (>60); GLUCOSE, FASTING 79 MG/DL (60-100); HDL CHOLESTEROL 49.2 MG/DL (>40); LDL CHOLESTEROL 86.4 MG/DL (<100); NON-HDL-C 96.8 MG/DL; POTASSIUM SERUM 4.5 MMOL/L (3.5-5.1); SODIUM LEVEL 141 MMOL/L (136-145); TOTAL PROTEIN 7.2 G/DL (5.7-8.2); TRIGLYCERIDES LEVEL 52 MG/DL (<150)
[2022-12-03 14:12] LABS: THYROID STIMULATING HORMONE 1.376 uIU/ML (0.55-4.78)
[2022-12-03 14:32] LABS: HEMOGLOBIN A1c 5.3 % (4.0-6.0)
== END ==
LOC: M PLALAB 12:03
PROVIDERS: ATTEND Nurse Practitioner Family
DX: Z13.220 Encounter for screening for lipoid disorders (principal); Z13.1 Encounter for screening for diabetes mellitus; F41.9 Anxiety disorder, unspecified

== ENCOUNTER 2022-12-06 10:34 | Day surgery (SDC) | payer OTHER ==
[~2022-12-06] VITALS: Ht 180.3 cm; Wt 109.5 kg
[~2022-12-06 10:34] MED LIST changes: +NS 1,000 ML IV ONE; +fentaNYL 100 MCG/2 ML INJECTION As Ordered ONE; +propofoL 200 MG/20 ML VIAL As Ordered ONE
[2022-12-06] MEDS ORDERED: propofoL 200 MG/20 ML VIAL As Ordered ONE ×2 (13:17→13:26)
[2022-12-06 13:44] VITALS: TEMP 98.5
[2022-12-06 14:02] VITALS: BP 123/76; O2SAT 99
== END 2022-12-06 14:09 | disposition home or self-care (01) ==
LOC: M OPP 10:34
PROVIDERS: ATTEND Internal Medicine Gastroenterology
DX: R19.4 Change in bowel habit (principal); K64.8 Other hemorrhoids; K31.89 Other diseases of stomach and duodenum; R10.84 Generalized abdominal pain; Z79.899 Other long term (current) drug therapy
CPT/HCPCS: 43239; 45380; 88305; J3010

== ENCOUNTER → 2022-12-18 | Outpatient (CLI) | payer OTHER ==
[~2022-12-18] MED LIST changes: -NS 1,000 ML IV ONE; -fentaNYL 100 MCG/2 ML INJECTION As Ordered ONE; -propofoL 200 MG/20 ML VIAL As Ordered ONE
[2022-12-18 14:47] LABS: ALBUMIN 4.2 G/DL (3.2-5.2); ALKALINE PHOSPHATASE 60 U/L (46-116); ALT/SGPT 62 U/L (7.0-40); AST/SGOT 22 U/L (<34); BILIRUBIN,DIRECT 0.2 MG/DL (<0.4); BILIRUBIN,TOTAL 0.6 MG/DL (0.3-1.2); IMMUNOGLOBULIN A 157.7 MG/DL (40-350); IRON (FE) 100 UG/DL (65-175); PERCENT SATURATION 28.7 % (19.7-50.0); TOTAL IRON BINDING CAPACITY 348 UG/DL (250-425); TOTAL PROTEIN 7.7 G/DL (5.7-8.2)
[2022-12-18 15:28] LABS: HEPATITIS B CORE ANTIBODY IGM NEGATIVE (NEGATIVE); HEPATITIS C VIRUS ABY INDEX 0.12 INDEX (<0.8)
== END ==
LOC: M PLALAB 11:34
PROVIDERS: ATTEND Internal Medicine Gastroenterology
DX: R74.01 Elevation of levels of liver transaminase levels (principal)

== ENCOUNTER → 2022-12-23 | Outpatient (REF) | payer OTHER ==
[2022-12-23 16:21] LABS: INR 1.01
== END ==
LOC: M LABDRAWP 15:28
PROVIDERS: ATTEND Internal Medicine Gastroenterology
DX: R74.01 Elevation of levels of liver transaminase levels (principal)

== ENCOUNTER 2023-01-27 00:28 | Emergency (ER) | payer OTHER ==
[2023-01-27 01:37] LABS: BASO % 0.4 % (0.0-1.0); EOS # 0.1 10^3/uL (0.0-0.5); EOS % 0.7 % (0.0-3.0); HEMOGLOBIN 12.8 g/dl (13.5-17.5); LYMPH # 1.4 10^3/uL (1.5-5.0); LYMPH % 13.9 % (24.0-44.0); MEAN CORPUSCULAR HEMOGLOBIN 29.5 pg (27.0-33.0); MEAN CORPUSCULAR HGB CONC 32.8 g/dl (32.0-36.5); MEAN CORPUSCULAR VOLUME 89.9 fl (80.0-96.0); MONO # 0.7 10^3/uL (0.0-0.8); MONO % 6.7 % (2.0-8.0); NEUTROPHILS % 77.9 % (36.0-66.0); PLATELET COUNT, AUTOMATED 274 10^3/uL (150-450); RED BLOOD COUNT 4.34 10^6/uL (4.30-6.10); WHITE BLOOD COUNT 10.2 10^3/uL (4.0-10.0)
[2023-01-27 01:59] LABS: ETHYL ALCOHOL (ETHANOL) < 0.003 % (0.000-0.010)
[2023-01-27 02:00] LABS: SALICYLATE LEVEL < 3.0 MG/DL (<30)
[2023-01-27 02:01] LABS: ACETAMINOPHEN LEVEL < 2.0 UG/ML (10.0-20.0); ALBUMIN 4.1 G/DL (3.2-5.2); ALKALINE PHOSPHATASE 50 U/L (46-116); ALT/SGPT 37 U/L (7.0-40); AST/SGOT 23 U/L (<34); BILIRUBIN,DIRECT 0.1 MG/DL (<0.4); BILIRUBIN,TOTAL 0.3 MG/DL (0.3-1.2); BLOOD UREA NITROGEN 14 MG/DL (9-23); CALCIUM LEVEL 8.8 MG/DL (8.5-10.1); CARBON DIOXIDE LEVEL 28 MMOL/L (20-31); CHLORIDE LEVEL 106 MMOL/L (98-107); CREATININE FOR GFR 0.84 MG/DL (0.70-1.30); GLOMERULAR FILTRATION RATE > 60.0 (>60); GLUCOSE, FASTING 136 MG/DL (60-100); POTASSIUM SERUM 4.2 MMOL/L (3.5-5.1); SODIUM LEVEL 141 MMOL/L (136-145); TOTAL PROTEIN 7.1 G/DL (5.7-8.2)
[2023-01-27 02:03] LABS: THYROID STIMULATING HORMONE 0.626 uIU/ML (0.55-4.78)
[2023-01-27 02:05] LABS: CPK CREATINE PHOSPHOKINASE 230 U/L (46-171)
[2023-01-27] MEDS ORDERED: NS 1,000 ML IV ONE (02:20)
[2023-01-27 09:04] LABS: AMPHETAMINES LEVEL URINE NEGATIVE (NEGATIVE); PHENCYCLIDINE URINE NEGATIVE (NEGATIVE)
[2023-01-27 09:05] LABS: BARBITURATES URINE NEGATIVE (NEGATIVE); BENZODIAZEPINES URINE NEGATIVE (NEGATIVE); COCAINE METABOLITE URINE NEGATIVE (NEGATIVE); METHADONE URINE NEGATIVE (NEGATIVE); OPIATES URINE NEGATIVE (NEGATIVE)
[2023-01-27 09:06] LABS: CANNABINOIDS URINE POSITIVE (NEGATIVE)
[2023-01-27 14:37] VITALS: BP 123/85; TEMP 97; O2SAT 98
== END 2023-01-27 14:44 | disposition home or self-care (01) ==
LOC: M ED 00:28 → EDBD 00:28 → M ED 14:44
DX: F12.10 Cannabis abuse, uncomplicated (principal); Z79.899 Other long term (current) drug therapy; Z79.1 Long term (current) use of non-steroidal anti-inflammatories (NSAID)

== ENCOUNTER → 2023-07-05 | Outpatient (CLI) | payer OTHER ==
[2023-07-05 10:30] LABS: FERRITIN 22.9 NG/ML (10.5-307.3)
== END ==
LOC: M LAB 08:59
PROVIDERS: ATTEND Physician Assistant Medical
DX: K21.9 Gastro-esophageal reflux disease without esophagitis (principal)

== ENCOUNTER → 2023-11-02 | Outpatient (CLI) | payer OTHER ==
[~2023-11-02] MED LIST changes: +FLUO-365 PO; -FLUO20CA22 PO
[2023-11-02 13:06] LABS: BASO # 0.1 10^3/uL (0.0-0.2); BASO % 1.4 % (0.0-1.0); EOS # 0.3 10^3/uL (0.0-0.5); EOS % 4.9 % (0.0-3.0); HEMATOCRIT 38.5 % (42.0-52.0); LYMPH # 2.1 10^3/uL (1.5-5.0); LYMPH % 35.4 % (24.0-44.0); MEAN CORPUSCULAR HGB CONC 33.8 g/dl (32.0-36.5); MEAN CORPUSCULAR VOLUME 88.9 fl (80.0-96.0); MONO # 0.7 10^3/uL (0.0-0.8); MONO % 12.4 % (2.0-8.0); NEUTROPHILS # 2.7 10^3/uL (1.5-8.5); NEUTROPHILS % 45.7 % (36.0-66.0); PLATELET COUNT, AUTOMATED 264 10^3/uL (150-450); RED BLOOD COUNT 4.33 10^6/uL (4.30-6.10); WHITE BLOOD COUNT 5.9 10^3/uL (4.0-10.0)
[2023-11-02 13:23] LABS: IRON (FE) 46 UG/DL (65-175)
[2023-11-02 13:24] LABS: ALBUMIN 4.1 G/DL (3.2-5.2); ALKALINE PHOSPHATASE 54 U/L (46-116); ALT/SGPT 45 U/L (7.0-40); AST/SGOT 24 U/L (<34); BILIRUBIN,TOTAL 0.3 MG/DL (0.3-1.2); BLOOD UREA NITROGEN 14 MG/DL (9-23); CALCIUM LEVEL 9.1 MG/DL (8.5-10.1); CARBON DIOXIDE LEVEL 27 MMOL/L (20-31); CHLORIDE LEVEL 109 MMOL/L (98-107); CREATININE FOR GFR 0.75 MG/DL (0.70-1.30); GLOMERULAR FILTRATION RATE > 60.0 (>60); GLUCOSE, FASTING 98 MG/DL (60-100); SODIUM LEVEL 141 MMOL/L (136-145); TOTAL PROTEIN 6.9 G/DL (5.7-8.2)
[2023-11-02 13:26] LABS: FERRITIN 17.3 NG/ML (10.5-307.3)
== END ==
LOC: M LAB 12:31
PROVIDERS: ATTEND Physician Assistant Medical
DX: E61.1 Iron deficiency (principal); R19.7 Diarrhea, unspecified

== ENCOUNTER → 2023-11-17 | Outpatient (CLI) | payer OTHER ==
[~2023-11-17] MED LIST changes: +GLUCAGON INJ 1MG VIAL As Ordered ONE; +ISOVUE-370 76% 100ML VIAL As Ordered ONE; +NEULUMEX 0.1% SUSPENSION 450ML BOTTLE (FORMERLY VOLUMEN) As Ordered ONE
== END ==
LOC: M RAD 13:27
PROVIDERS: ATTEND Physician Assistant Medical
DX: E61.1 Iron deficiency (principal); K76.89 Other specified diseases of liver
CPT/HCPCS: 74177; J1610; Q9967